=== PATIENT | male | born 1955 | race African-American/Black ===

== ENCOUNTER 2016-09-15 03:57 | Emergency (ER) | payer MEDICAID, OTHER ==
[~2016-09-15] VITALS: Ht 177.8 cm; Wt 100.0 kg
[~2016-09-15 03:57] MED LIST: AMLO5TAB88; CARV12.545; CLON0.2T; FURO-151; HYDR-2412; LISI-186; NAPR-677; POTA99TA15; VIAG50
[2016-09-15] MEDS ORDERED: KETOROLAC 60MG/2ML VIAL IM ONE (06:30)
[2016-09-15 07:25] VITALS: BP 155/80
== END 2016-09-15 09:03 | disposition home or self-care (01) ==
LOC: ER 03:57
DX: M54.5 Low back pain (principal); M41.9 Scoliosis, unspecified; G89.29 Other chronic pain; M19.90 Unspecified osteoarthritis, unspecified site; J44.9 Chronic obstructive pulmonary disease, unspecified; I10 Essential (primary) hypertension; F17.200 Nicotine dependence, unspecified, uncomplicated
CPT/HCPCS: 36415; 71010; 72100; 96372; 99285; G0482; J1885; Z7610

== ENCOUNTER 2019-10-26 17:50 | Emergency (ER) | payer MEDICAID, OTHER ==
[~2019-10-26] VITALS: Ht 180.3 cm; Wt 102.0 kg
[~2019-10-26 17:50] MED LIST changes: -HYDR-2412; +HYDR-459
[2019-10-26] MEDS ORDERED: ALBUTEROL (0.083%) 2.5MG/3ML NEB HHN STA (18:23)
[2019-10-26] MEDS ORDERED: PREDNISONE 20MG TABLET PO STA (18:23)
[2019-10-26] MEDS ORDERED: IPRATROPIUM BROMIDE (0.02%) 0.5MG/2.5ML NEB HHN STA (18:23)
[2019-10-26 18:51] VITALS: BP 130/63
== END 2019-10-26 18:50 | disposition left against medical advice (07) ==
LOC: ER 17:56
DX: J44.9 Chronic obstructive pulmonary disease, unspecified (principal); E11.9 Type 2 diabetes mellitus without complications; I10 Essential (primary) hypertension; Z79.899 Other long term (current) drug therapy
CPT/HCPCS: 99283; J7512; Z7610